=== PATIENT | female | born 1940 | race Hispanic/Latino ===

== ENCOUNTER 2017-08-14 09:27 | Outpatient (CLI) | payer MEDICARE | END 2017-08-14 09:28 | disposition home or self-care (01) | LOC: BICMAMMO 09:27 | PROVIDERS: ATTEND Family Medicine | DX: Z12.31 Encounter for screening mammogram for malignant neoplasm of breast (principal) | CPT/HCPCS: 77063; 77067 ==

== ENCOUNTER 2017-08-21 09:26 | Outpatient (CLI) | payer MEDICARE ==
--- NOTE | 2017-08-21 11:13 | ULT ---
LIMITED ULTRASOUND OF THE ABDOMINAL WALL SOFT TISSUES: HISTORY: Abdominal wall umbilical hernia status post repair. The patient reports a recurrence of the hernia i n this location. TECHNIQUE: Multiplanar, lerma scale, and color Doppler images were obtained in an ultrasound of the left lower qu adrant of the abdomen and of the periumbilical region. No fascial defect is seen in either location. IMPRESSION: No evidence of left lower quadrant or umbilical hernia. POS: [facility]
== END 2017-08-21 09:27 | disposition home or self-care (01) ==
LOC: ULT 09:26
PROVIDERS: ATTEND Family Medicine
DX: K46.9 Unspecified abdominal hernia without obstruction or gangrene (principal); E83.52 Hypercalcemia
CPT/HCPCS: 36415; 76705; 82310; 83970

== ENCOUNTER 2018-04-15 03:35 | Emergency (ER) | payer MEDICARE ==
[2018-04-15 04:21] LABS: #Eosinphils 0.1 thou/uL (0.0-0.7); #Lymphocytes 1.8 thou/uL (1.20-3.40); #Monocytes 0.5 thou/uL (0.11-0.59); #Neutrophils 8.6 thou/uL (1.40-6.50); %Basophils 0.4 % (0.0-1.0); %Eosinophils 1.1 % (0.0-10.0); %Lymphocytes 16.5 % (21.0-51.0); %Monocytes 4.7 % (0.0-10.0); %Neutrophils 77.3 % (42.0-75.0); Hemoglobin 12.6 g/dL (12.0-16.0); Mean Corpuscular HGB CONC 34.1 g/dL (32.0-36.0); Mean Corpuscular Hemoglobin 32.4 pg (27.0-31.0); Mean Corpuscular Volume 94.9 fL (78.0-98.0); Mean Platelet Volume 10.9 fL (7.4-10.4); Platelet Count 132 thou/uL (130-400); RBC Distribution Width 12.5 % (11.5-14.5); Red Blood Cell (RBC) Count 3.88 mill/uL (4.20-5.40); White Blood Cell (WBC) Count 11.2 thou/uL (4.8-10.8)
[2018-04-15 04:43] LABS: ALT (SGPT) 12 U/L (8-55); AST (SGOT) 17 U/L (5-34); Albumin 4.3 g/dL (3.4-4.8); Alkaline Phosphatase 80 U/L (40-150); Anion Gap 10 mmol/L (10-20); BUN (Urea Nitrogen) 23 mg/dL (9.8-20.1); Bilirubin, Total 0.6 mg/dL (0.2-1.2); Calc. Creatinine Clearance 0 mL/min (70-130); Calcium 10.3 mg/dL (7.8-10.44); Carbon Dioxide 27 mmol/L (23-31); Chloride 104 mmol/L (98-107); Estimated GFR-MDRD 81; Globulin 3.7 g/dL (2.4-3.5); Glucose 133 mg/dL (83-110); Lipase 47 U/L (8-78); Potassium 3.8 mmol/L (3.5-5.1); Sodium 137 mmol/L (136-145)
[2018-04-15 04:46] LABS: CKMB 2.1 ng/mL (0-6.6); Troponin I Less than 0.010 ng/mL (< 0.028)
[2018-04-15] MEDS ORDERED: Meclizine HCl 25 MG TAB ONE (05:02)
[2018-04-15 06:09] LABS: Bilirubin Negative (Negative); Blood, Urine Negative (Negative); Clarity CLEAR (Clear); Glucose, Urine (Dipstick) Negative (Negative); Leukocyte Negative (Negative); Nitrite Negative (Negative); Protein, Urine (Dipstick) Negative (Neg-Trace); Specific Gravity, Urine 1.019 (1.002-1.036); Urobilinogen 0.2 mg/dL (0.2-1.0)
--- NOTE | 2018-04-15 08:27 | CT ---
PRELIMINARY REPORT/[facility]/EMERGENCY AFTER HOURS PROCEDURE: EXAM: CT Head Without Intravenous Contrast EXAM DATE/TIME: Exam ordered 04/15/2018 5:19 AM CLINICAL HISTORY: 77 years old, female; Signs and symptoms; Altered mental status/memory loss; Patient HX: F77 reports to ed C/O nausea and vomiting. Pt reports nausea, vomiting, abdominal pain, diaphoresis and lighthead edness. Pt reports started x1 hour ago when she woke up. Pt also reports "i have been feeling really weak and tired. " pt denies radiation of pain. Pt reports constipation for x2 days. Pt denies fever, chest pain or SOB. Pt was a poor historian. ; Additional info: Pt. Unable to hold stil l for exam TECHNIQUE: Axial computed tomography images of the head/brain without intravenous contrast. COMPARISON: No relevant prior studies available. FINDINGS: Brain: Normal. No hemorrhage. No significant white matter disease. No edema. Ventricles: Normal. No ventriculomegaly. Bones/joints: Normal. No acute fracture. Soft tissues: Normal. Sinuses: Unremarkable as visualized. No acute sinusitis. Mastoid air cells: Unremarkable as visualized. No mastoid effusion. IMPRESSION: No acute intracranial hemorrhage. Thank you for allowing us to participate in the care of your patient. Dictated and Authenticated by: Sabas Carlton MD 04/15/2018 5:56 AM Central Time ([place] & [place]) FINAL REPORT CT BRAIN WITHOUT CONTRAST: HISTORY: Nausea and vomiting. COMPARISON: Comparison is made to a study from 2016. FINDINGS/IMPRESSION: Findings and impression are concordant with the preliminary report. POS: [facility]
--- NOTE | 2018-04-15 08:53 | RAD ---
UPRIGHT PORTABLE CHEST 1 VIEW: HISTORY: A 77-year-old female with a history of chest pain, nausea and vomiting, dizziness. COMPARISON: 10/13/08. FINDINGS: Monitor leads overlie the chest. Minimal increased bronchovascular markings are noted bilaterally. N o confluent pneumonia, overt edema, or pleural effusion. IMPRESSION: Increased bronchovascular markings bilaterally. No overt acute process. POS: [facility]
== END 2018-04-15 06:45 | disposition home or self-care (01) ==
LOC: ERS 03:35
DX: R10.13 Epigastric pain (principal); R42 Dizziness and giddiness; R11.2 Nausea with vomiting, unspecified; E11.9 Type 2 diabetes mellitus without complications; E78.5 Hyperlipidemia, unspecified; J45.909 Unspecified asthma, uncomplicated; F32.9 Major depressive disorder, single episode, unspecified; Z86.73 Personal history of transient ischemic attack (TIA), and cerebral infarction without residual deficits; Z79.82 Long term (current) use of aspirin; Z79.899 Other long term (current) drug therapy
CPT/HCPCS: 36415; 70450; 71045; 80053; 81003; 82553; 83690; 84484; 85025; 93005